=== PATIENT | female | born 1945 | race Caucasian/White ===

== ENCOUNTER 2022-04-26 11:18 | Emergency (ER) | payer MEDICARE, MEDICAID ==
[~2022-04-26] VITALS: Ht 160 cm; Wt 59.0 kg
[2022-04-26] MEDS ORDERED: HYDROCODONE-AC1 EAC1 PO (17:51)
== END 2022-04-26 18:12 | disposition home or self-care (01) ==
LOC: ED 11:18
DX: M25.552 Pain in left hip (principal); Z91.040 Latex allergy status; Z88.0 Allergy status to penicillin; Z88.8 Allergy status to other drugs, medicaments and biological substances; F17.200 Nicotine dependence, unspecified, uncomplicated

== ENCOUNTER → 2023-08-17 | Outpatient (CLI) | payer MEDICARE, MEDICAID ==
[~2023-08-17] MED LIST: CLOPIDOGREL75 MG PO; DOXYCYCLINE MO100 MG PO; HYDROCODONE-AC1 EAC1 PO; LIPITOR40 MG PO; NORVASC5 MG PO; PREDNISONE10 MG PO; VENT7GM INH; ZETIA10 MG PO
== END | disposition home or self-care (01) ==
LOC: RESCLI 01:17
PROVIDERS: ATTEND Internal Medicine
DX: J44.9 Chronic obstructive pulmonary disease, unspecified (principal); R07.9 Chest pain, unspecified; R06.02 Shortness of breath; R10.9 Unspecified abdominal pain; R11.0 Nausea; R11.10 Vomiting, unspecified; R19.7 Diarrhea, unspecified; R68.83 Chills (without fever); R61 Generalized hyperhidrosis; I10 Essential (primary) hypertension; E78.5 Hyperlipidemia, unspecified; Z98.890 Other specified postprocedural states; Z88.0 Allergy status to penicillin; Z91.040 Latex allergy status; Z88.8 Allergy status to other drugs, medicaments and biological substances; Z79.899 Other long term (current) drug therapy

== ENCOUNTER → 2023-10-17 | Outpatient (CLI) | payer MEDICARE, MEDICAID ==
[2023-10-17 10:35] LABS: FREE T4 1.05 ng/dl (0.89-1.76); POTASSIUM 3.7 mmol/L (3.4-5.1); TOTAL PROTEIN 7.2 gm/dL (6.0-8.0)
== END | disposition home or self-care (01) ==
LOC: LAB 09:27
PROVIDERS: ATTEND Internal Medicine
DX: E55.9 Vitamin D deficiency, unspecified (principal); E78.5 Hyperlipidemia, unspecified; E04.9 Nontoxic goiter, unspecified; R73.03 Prediabetes